=== PATIENT | male | born 1995 | race American Indian/Alaskan Native ===

== ENCOUNTER 2019-11-23 11:07 | Outpatient (CLI) | payer BC ==
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
== END 2019-11-23 11:08 | disposition home or self-care (01) ==
LOC: MRI 11:07
PROVIDERS: ATTEND Internal Medicine
DX: S83.212A Bucket-handle tear of medial meniscus, current injury, left knee, initial encounter (principal); X58.XXXA Exposure to other specified factors, initial encounter; Y93.89 Activity, other specified; Y92.89 Other specified places as the place of occurrence of the external cause; Y99.8 Other external cause status
CPT/HCPCS: 73721